=== PATIENT | female | born 1960 | race Two or more races ===

== ENCOUNTER 2024-05-29 05:35 | Inpatient (IN) | payer OTHER ==
[~2024-05-29] VITALS: Ht 162.6 cm; Wt 81.6 kg
[2024-05-29] MEDS ORDERED: GLUMETZA500 MG PO (05:43)
[2024-05-29] MEDS ORDERED: PROSCAR5 MG PO (05:44)
[2024-05-29] MEDS ORDERED: FAMOTIDINE/PF 20 MG/2 ML VIAL IV PUSH STA (06:19)
[2024-05-29] MEDS ORDERED: MEPERIDINE HCL/PF 25 MG/ML VIAL IM STA (06:19)
[2024-05-29] MEDS ORDERED: PROMETHAZINE HCL 50 MG/ML AMPUL IM STA ×2 (06:20→10:49)
[2024-05-29] MEDS ORDERED: RINGERS SOLUTION,LACTATED 1,000 ML IV ONE (06:30)
[2024-05-29 07:04] LABS: HEMATOCRIT 42.6 % (36.0-45.00); HEMOGLOBIN 14.6 g/dL (12.0-15.00); MEAN CELL VOLUME 94.7 fL (80.00-100.00); MEAN CORPUSCULAR HEMOGLOBIN 32.3 pg (27.00-32.0); MEAN CORPUSCULAR HGB CONC 34.1 g/dl (32.0-36.0); PLATELET COUNT 294 K/uL (150-450); RED CELL DISTRIBUTION WIDTH 13.2 % (11.5-14.5)
[2024-05-29 07:23] LABS: URINE APPEARANCE Clear; URINE BILIRRUBIN Negative (NEGATIVE); URINE BLOOD Negative; URINE COLOR Yellow; URINE KETONE Trace (NEGATIVE); URINE LEUKOCYTE Negative; URINE NITRATE Negative; URINE PROTEIN Negative (NEGATIVE); URINE UROBILINOGEN 0.2 E.U./dl
[2024-05-29 07:27] LABS: URINE BACTERIA 396.8 uL (0.0-1933); URINE EPITHELIAL CELLS 3.3 uL (0.0-38.8); URINE RBC 4.1 uL (0.0-20.8); URINE WBC 5.5 uL (0.0-23.2)
[2024-05-29 07:40] LABS: URINE GLUCOSE >=1000 MG/DL (NEGATIVE)
[2024-05-29] MEDS ORDERED: MEPERIDINE HCL/PF 25 MG/ML VIAL IV STA (07:57)
[2024-05-29 09:18] LABS: ALBUMIN 3.6 gm/dL (3.4-5.0); BILIRUBIN TOTAL 0.57 mg/dL (0.3-1.2); BILIRUBIN,CONJUGATED 0.15 mg/dL (0.0-0.2); BILIRUBIN,UNCONJUGATED 0.42 mg/dL (0.0-0.6); CREATININE SERUM 0.61 mg/dL (0.55-1.02); GFR 98.43; GLOBULINA 3.2 G/DL (2.4-3.5); POTASSIUM 4.32 mEq/L (3.5-5.1); TOTAL PROTEIN 6.8 gm/dL (6.4-8.2)
[2024-05-29] MEDS ORDERED: PIPERACILLIN/TAZOBACTAM SODIUM 3.375 GM VIAL IV STA (09:56)
[2024-05-29] MEDS ORDERED: MORPHINE SULFATE 4 MG/ML VIAL IV STA (10:48)
[2024-05-29] MEDS ORDERED: FAMOTIDINE/PF 20 MG in 0.9 % SODIUM CHLORIDE 100 ML IV SCH (12:54)
[2024-05-29] MEDS ORDERED: KETOROLAC TROMETHAMINE 30 MG VIAL IM PRN (13:00)
[2024-05-29] MEDS ORDERED: 0.9 % SODIUM CHLORIDE 1,000 ML IV SCH (13:00)
[2024-05-29] MEDS ORDERED: ONDANSETRON HCL 4 MG in 0.9 % SODIUM CHLORIDE 50 ML IV PRN (13:00)
[2024-05-29] MEDS ORDERED: DEXTROSE 50 % IN WATER 0.5 G/ML DISP.SYRIN IV PRN (13:15)
[2024-05-29] MEDS ORDERED: INSULIN LISPRO 1,000 UNIT/10 ML UNITS SUBCUTANEO PRN (13:15)
[2024-05-29] MEDS ORDERED: PIPERACILLIN/TAZOBACTAM SODIUM 3.375 GM in 0.9 % SODIUM CHLORIDE 100 ML IV SCH (14:00)
[2024-05-29 21:06] VITALS: BP 133/73; O2SAT 98
[2024-05-30 03:13] VITALS: BP 110/73; O2SAT 96
[2024-05-30 08:30] LABS: BILIRUBIN TOTAL 0.8 mg/dL (0.3-1.2); CALCIUM 8.2 mg/dL (8.5-10.1); CREATININE SERUM 0.64 mg/dL (0.55-1.02); GFR 93.13; GLOBULINA 2.9 G/DL (2.4-3.5); POTASSIUM 3.66 mEq/L (3.5-5.1); TOTAL PROTEIN 5.9 gm/dL (6.4-8.2)
[2024-05-30 08:43] VITALS: BP 99/60
[2024-05-30] MEDS ORDERED: ACETAMINOPHEN 500 MG GEL..CAP PO PRN (15:00)
[2024-05-30 18:17] VITALS: BP 163/76; O2SAT 97
[2024-05-31 01:38] VITALS: BP 130/72; O2SAT 97
[2024-05-31 06:31] LABS: INR 1.19; PARTIAL THROMBOPLASTIN TIME 31.5 SECONDS (22.0-34.0); PROTHROMBIN TIME 12.8 SECONDS (9.0-11.5)
[2024-05-31] MEDS ORDERED: PIPERACILLIN/TAZOBACTAM SODIUM 3.375 GM VIAL IV ONE ×2 (11:15→13:15)
[2024-05-31] MEDS ORDERED: MORPHINE SULFATE 4 MG/ML VIAL IV ONE ×4 (12:50→14:20)
[2024-05-31] MEDS ORDERED: SUGAMMADEX SODIUM 200 MG/2 ML VIAL IV ONE (13:00)
[2024-05-31] MEDS ORDERED: MORPHINE SULFATE 4 MG/ML CARTRIDGE IV PRN (13:15)
[2024-05-31] MEDS ORDERED: MORPHINE SULFATE 4 MG/ML CARTRIDGE IV SCH (18:00)
[2024-06-01 01:42] VITALS: BP 115/70; O2SAT 98
[2024-06-01 09:00] VITALS: BP 114/67; O2SAT 99
[2024-06-01 11:40] LABS: HEMATOCRIT 38.2 % (36.0-45.00); HEMOGLOBIN 12.9 g/dL (12.0-15.00); MEAN CELL VOLUME 94.5 fL (80.00-100.00); MEAN CORPUSCULAR HGB CONC 33.8 g/dl (32.0-36.0); PLATELET COUNT 253 K/uL (150-450); RED BLOOD COUNT 4.05 M/uL (4.00-6.00); RED CELL DISTRIBUTION WIDTH 13.8 % (11.5-14.5)
[2024-06-01 12:38] LABS: ALBUMIN 2.5 gm/dL (3.4-5.0); BILIRUBIN TOTAL 1.15 mg/dL (0.3-1.2); CALCIUM 8.4 mg/dL (8.5-10.1); CREATININE SERUM 0.68 mg/dL (0.55-1.02); GFR 86.84; GLOBULINA 3.3 G/DL (2.4-3.5); POTASSIUM 3.19 mEq/L (3.5-5.1); TOTAL PROTEIN 5.8 gm/dL (6.4-8.2)
[2024-06-01 16:00] VITALS: BP 147/84; O2SAT 90
[2024-06-02 01:49] VITALS: BP 131/84; O2SAT 97
== END 2024-06-02 08:35 | disposition left against medical advice (07) | DRG 419 ==
LOC: ER 05:37 → MEDJ 12:58 → SEC-K 12:58 → MEDI 17:04 → MEDJ 21:17
PROVIDERS: General Practice; Specialist; ADMIT Internal Medicine; ATTEND Internal Medicine
PROC: BW40ZZZ Ultrasonography of Abdomen (ICD-10-PCS; 2024-05-29)
PROC: BF13YZZ Fluoroscopy of Gallbladder and Bile Ducts using Other Contrast (ICD-10-PCS; 2024-05-31)
PROC: 0FT44ZZ Resection of Gallbladder, Percutaneous Endoscopic Approach (ICD-10-PCS; principal; 2024-05-31 12:00)
DX: K80.20 Calculus of gallbladder without cholecystitis without obstruction (principal); R63.0 Anorexia